=== PATIENT | female | born 1995 ===

== ENCOUNTER 2022-04-27 19:59 | Emergency (ER) | payer SELFPAY ==
[2022-04-27 22:09] VITALS: BP 152/101
== END 2022-04-27 20:40 | disposition left against medical advice (07) ==
LOC: ED 19:59
DX: S09.90XA Unspecified injury of head, initial encounter (principal); Z53.21 Procedure and treatment not carried out due to patient leaving prior to being seen by health care provider; W22.8XXA Striking against or struck by other objects, initial encounter; Y93.89 Activity, other specified; Y92.89 Other specified places as the place of occurrence of the external cause; Y99.8 Other external cause status